=== PATIENT | female | born 1970 | race Two or more races ===

== ENCOUNTER 2020-07-06 11:02 | Outpatient (REF) | payer MEDICAID, SELFPAY ==
--- NOTE | ~2020-07-06 | MM_ITS ---
EXAMINATION: MM DIAGNOSTIC DIGITAL BREAST TOMOSYNTHESIS, RIGHT CLINICAL INFORMATION: Right breast density likely representing a complex cyst on previous ultrasound examination of 01/06/2020. The lifetime risk of breast cancer based on the Tyrer-Cuzick Model is 7.3%. COMPARISON: Mammography: 12/26/2019 TECHNIQUE: Digital breast tomosynthesis is performed in both the craniocaudal and mediolateral oblique views along with computer-aided detection (CAD). Synthesized 2D images are generated from the tomosynthesis. FINDINGS: There are scattered areas of fibroglandular density (ACR BI-RADS breast composition Category b). Within the superior anterior aspect of the right breast there is again noted to be a lobulated approximately 1 x 0.7 x 0.7 cm lesion. No other suspicious dominant masses or suspicious grouping of microcalcifications identified. Patient was unable to stay for ultrasound to ensure stability of partially cystic lesion seen on prior ultrasound. Patient has scheduled to come back for that study. MM/MM tomosynthesis diagnostic RT IMPRESSION: No significant mammographic change of anterior superior right breast lesion. Patient will return for ultrasound to ensure stability. ASSESSMENT: BI-RADS 0: Incomplete - Need Additional Imaging Evaluation RECOMMENDATION: Right breast ultrasound.
== END 2020-07-06 11:03 | disposition home or self-care (01) ==
LOC: HO.MAMMO 11:02
PROVIDERS: PCP Internal Medicine; Visit Provider Internal Medicine
DX: N63.10 Unspecified lump in the right breast, unspecified quadrant (principal)
CPT/HCPCS: 77061; 77065

== ENCOUNTER 2020-08-06 12:27 | Outpatient (REF) | payer MEDICAID, SELFPAY ==
--- NOTE | ~2020-08-06 | US_ITS ---
EXAMINATION: US DIAGNOSTIC ULTRASOUND BREAST, RIGHT CLINICAL INFORMATION: Periareolar nodule under 1 cm at initial baseline mammography, possibly related to a simple cyst on targeted ultrasound. No significant change on recent follow-up mammography. Patient was unable to stay for follow-up ultrasound which is performed today. COMPARISON: 07/06/2020, 12/26/2019 (BI-RADS 0), targeted right breast ultrasound 01/06/2020. TECHNIQUE: Ultrasound right breast is targeted to the 6:00 to 12:00 position. Grayscale imaging and color Doppler are performed without and with harmonics. FINDINGS: The small cyst previously noted 11:00 position is decreased in size. The nodule on mammography appears stable. The ultrasound finding and mammographic finding may therefore be different entities. There is no solid mass or architectural abnormality or focal duct ectasia. Management plan is for diagnostic follow-up right mammography at time of annual exam, due in 6 months. Results are discussed with the patient at time of visit. US/US breast RT limited IMPRESSION: Small cyst 11:00 position is decreased in size. Nodule on recent follow-up mammography appears stable. The ultrasound finding and mammographic finding may be different entities. ASSESSMENT: BI-RADS 3: Probably Benign RECOMMENDATION: Diagnostic mammography at time of annual bilateral exam, due in 6 months. This patient's information was entered into a reminder system with a target due date for their next mammogram.
== END 2020-08-06 12:28 | disposition home or self-care (01) ==
LOC: HO.MAMMO 12:27
PROVIDERS: PCP Internal Medicine; Visit Provider Internal Medicine
DX: N60.01 Solitary cyst of right breast (principal)
CPT/HCPCS: 76642

== ENCOUNTER 2022-11-21 09:54 | Outpatient (REF) | payer MEDICAID, SELFPAY ==
[2022-11-21 14:25] LABS: MANUAL DIFF FLAG NO
[2022-11-21 14:31] LABS: Basophils Percent Auto 0.5 % (0-2); Eosinophils Absolute Auto 0.4 X10*3/uL (0.0-0.4); Eosinophils Percent Auto 5.6 % (0-4); Hemoglobin 14.6 g/dl (12.0-16.0); Imm Gran Abs Auto 0.08 X10*3/uL (0.00-0.03); Lymphocytes Absolute Auto 2.4 X10*3/uL (1.2-4.9); Lymphocytes Percent Auto 30.9 % (20-40); Mean Corpuscular HGB Conc 35.6 g/dl (31.0-35.0); Mean Corpuscular Hemoglobin 27.8 pg (27.0-33.0); Mean Corpuscular Volume 77.9 fL (80.0-98.0); Mean Platelet Volume 10.9 fL (9.4-12.3); Monocytes Absolute Auto 0.5 X10*3/uL (0.1-1.2); Monocytes Percent Auto 6.1 % (2-11); Neutrophils Absolute Auto 4.3 x10*3/uL (2.0-8.3); Neutrophils Percent Auto 55.9 % (45-73); Platelet Count 335 X10*3/uL (160-400); Red Blood Count 5.26 X10*6/uL (4.20-5.50); White Blood Count 7.7 X10*3/uL (4.8-10.8)
[2022-11-21 15:17] LABS: Creatinine Urine 175.03 mg/dL; Microalbum/Creatinine Ratio Ur 14.8 ug/mg cr
[2022-11-21 15:29] LABS: Alanine Aminotransferase 28 U/L (0-31); Albumin Level 4.1 g/dL (3.5-5.0); Alkaline Phosphatase 115 U/L (39-117); Anion Gap 13 (12-20); Aspartate Amino Transferase 19 U/L (5-31); Bilirubin Total 0.3 mg/dL (0.0-1.0); Blood Urea Nitrogen 21 mg/dL (9-16); Calcium 9.8 mg/dL (8.4-10.2); Carbon Dioxide 27 mmol/L (22-29); Chloride 101 mmol/L (96-108); Cholesterol 232 mg/dL; Estimated Glomerular Filt Rate > 60; Glucose Random 310 mg/dL (60-115); HDL Cholesterol 54 mg/dL; LDL Cholesterol Calculated 143 mg/dl; Sodium 137 mmol/L (135-145); Total Protein 7.3 g/dL (6.5-8.0); Triglycerides 179 mg/dL
[2022-11-22 04:00] LABS: ~HepC Num1 0.08 S/CO (0.00-0.79); ~Hepatitis C Antibody Nonreactive (Nonreactive)
== END 2022-11-21 09:55 | disposition home or self-care (01) ==
LOC: HO.CHCLDS 09:54
PROVIDERS: Visit Provider Internal Medicine
DX: I10 Essential (primary) hypertension (principal); E11.42 Type 2 diabetes mellitus with diabetic polyneuropathy; E78.2 Mixed hyperlipidemia; Z79.4 Long term (current) use of insulin
CPT/HCPCS: 36415; 80053; 80061; 82043; 85025; 86803

== ENCOUNTER 2023-05-25 14:24 | Outpatient (REF) | payer MEDICAID, SELFPAY ==
[2023-05-25 18:13] LABS: Alanine Aminotransferase 23 U/L (0-31); Albumin Level 3.7 g/dL (3.5-5.0); Alkaline Phosphatase 76 U/L (39-117); Anion Gap 13 (12-20); Aspartate Amino Transferase 13 U/L (5-31); Bilirubin Total 0.3 mg/dL (0.0-1.0); Blood Urea Nitrogen 15 mg/dL (9-16); Calcium 8.8 mg/dL (8.4-10.2); Carbon Dioxide 23 mmol/L (22-29); Chloride 104 mmol/L (96-108); Cholesterol 190 mg/dL (<200); Estimated Glomerular Filt Rate > 60; Glucose Random 289 mg/dL (60-115); HDL Cholesterol 54 mg/dL (>40); LDL Cholesterol Calculated 110 mg/dL (<100); Potassium 3.6 mmol/L (3.3-5.1); Sodium 136 mmol/L (135-145); Total Protein 6.9 g/dL (6.5-8.0); Triglycerides 132 mg/dL (<150)
[2023-05-26 05:15] LABS: Estimated Average Glucose 214 mg/dL; Hemoglobin A1c % 9.1 % (<6.0)
== END 2023-05-25 14:25 | disposition home or self-care (01) ==
LOC: HO.CHCLDS 14:24
PROVIDERS: Visit Provider Internal Medicine
DX: E11.59 Type 2 diabetes mellitus with other circulatory complications (principal); Z79.4 Long term (current) use of insulin
CPT/HCPCS: 36415; 80053; 80061; 83036

== ENCOUNTER 2023-12-23 14:44 | Outpatient (REF) | payer MEDICAID, SELFPAY ==
[2023-12-23 17:38] LABS: MANUAL DIFF FLAG NO
[2023-12-23 17:43] LABS: Basophils Percent Auto 0.5 % (0-2); Eosinophils Absolute Auto 0.3 X10*3/uL (0.0-0.4); Eosinophils Percent Auto 4.5 % (0-4); Hemoglobin 14.7 g/dl (12.0-16.0); Imm Gran Abs Auto 0.06 X10*3/uL (0.00-0.03); Imm Gran Pct Auto 0.8 % (0.0-0.4); Lymphocytes Absolute Auto 2.5 X10*3/uL (1.2-4.9); Lymphocytes Percent Auto 33.7 % (20-40); Mean Corpuscular HGB Conc 36.8 g/dl (31.0-35.0); Mean Corpuscular Hemoglobin 28.4 pg (27.0-33.0); Mean Corpuscular Volume 77.2 fL (80.0-98.0); Mean Platelet Volume 10.4 fL (9.4-12.3); Monocytes Absolute Auto 0.5 X10*3/uL (0.1-1.2); Monocytes Percent Auto 7.1 % (2-11); Neutrophils Absolute Auto 3.9 x10*3/uL (2.0-8.3); Neutrophils Percent Auto 53.4 % (45-73); Platelet Count 378 X10*3/uL (160-400); Red Blood Count 5.18 X10*6/uL (4.20-5.50); Red Cell Distribution Width 13.2 % (11.0-16.0); White Blood Count 7.3 X10*3/uL (4.8-10.8)
[2023-12-23 17:58] LABS: Alanine Aminotransferase 13 U/L (0-31); Albumin Level 3.9 g/dL (3.5-5.0); Alkaline Phosphatase 82 U/L (39-117); Anion Gap 10 (12-20); Aspartate Amino Transferase 10 U/L (5-31); Bilirubin Total 0.7 mg/dL (0.0-1.0); Blood Urea Nitrogen 20 mg/dL (9-16); Calcium 9.4 mg/dL (8.4-10.2); Carbon Dioxide 29 mmol/L (22-29); Chloride 102 mmol/L (96-108); Cholesterol 290 mg/dL (<200); Estimated Glomerular Filt Rate > 60; Glucose Random 197 mg/dL (60-115); HDL Cholesterol 47 mg/dL (>40); LDL Cholesterol Calculated 212 mg/dL (<100); Potassium 3.7 mmol/L (3.3-5.1); Sodium 137 mmol/L (135-145); Total Protein 6.7 g/dL (6.5-8.0); Triglycerides 158 mg/dL (<150)
[2023-12-23 18:09] LABS: Creatinine Urine 191.79 mg/dL
== END 2023-12-23 14:45 | disposition home or self-care (01) ==
LOC: HO.CHCLDS 14:44
PROVIDERS: Visit Provider Internal Medicine
DX: E11.59 Type 2 diabetes mellitus with other circulatory complications (principal); Z79.4 Long term (current) use of insulin
CPT/HCPCS: 36415; 80053; 80061; 82043; 82570; 85025

== ENCOUNTER 2024-01-18 18:14 | Outpatient (REF) | payer MEDICAID, SELFPAY ==
[2024-01-18 18:23] LABS: Appearance Urine Clear; Color Urine Yellow; Glucose Urine UA 500 mg/dL (Negative); Leukocyte Esterase Urine Small (1+) (Negative); Nitrite Urine Negative (Negative); Specific Gravity - Urine 1.025 (1.005-1.025); UMIC TRIGGER UACC YES; Urine Blood Moderate (2+) (Negative); Urine Ketones Negative (Negative); Urine Protein 30 (1+) mg/dL (Neg-Trace)
[2024-01-18 23:54] LABS: Bacteria Urine Trace (None Seen); Hyaline Casts Urine 0-2 /LPF (0-2); UACC Culture Trigger YES
== END 2024-01-18 18:15 | disposition home or self-care (01) ==
LOC: HO.HHCLNP 18:14
PROVIDERS: Visit Provider Internal Medicine
DX: R39.9 Unspecified symptoms and signs involving the genitourinary system (principal)
CPT/HCPCS: 81001; 87086

== ENCOUNTER 2024-03-09 | Outpatient (REF) | payer MEDICAID, SELFPAY ==
[2024-03-14 10:49] LABS: HPV 16,18/45 See PAP report
== END 2024-03-09 00:01 | disposition home or self-care (01) ==
LOC: HO.LNP
PROVIDERS: Visit Provider Advanced Practice Midwife
DX: Z12.4 Encounter for screening for malignant neoplasm of cervix (principal)
CPT/HCPCS: 87624; 88175

== ENCOUNTER 2024-08-05 12:52 | Outpatient (REF) | payer MEDICAID, SELFPAY ==
--- OUTSIDE RECORDS SUMMARY | 2024-08-05 13:32 | XMS_ITS | Encounter Summary ---
Author Organization [employer] Address [address] [place] [address] [address] [place] [address] Care Team Providers Care Chief Medical Officer Name Role Phone Melecio Curran MD Primary Care Prov ider Reason for Visit * Reason Comments Med Change Request Encounter Details Date Type Department Care Team ([facility] st Contact Info) Description 04/21/2022 Refill [facility] [address] [place] [address] Melecio Curran MD [address] [place] [address] Type 2 diabetes mellitus with diabetic polyneuropathy, with long-term current use of insulin (CMS/HCC) Social History Tobacco Use Types Packs/Day Years Used Date Smoking Tobacco: Never Assessed Comments Unknown Sex and Gender Information Value Date Recorded Sex Assigned at Female 02/10/2022 10:36 AM EDT Legal Sex Female 10:36 AM EDT Gender Identity Female 02/10/2022 10:36 AM EDT Sexual Orientation Straight 02/10/2022 10 :36 AM EDT documented as of this encounter Plan of Treatment Not on file documented as of this encounter Visit Diagnoses Diagnosis Type 2 diabetes mellitus with diabetic polyneuropathy, with long-term current use of insulin (CMS/HCC) documented in this encounter Care Teams Chief Medical Officer Relationship Specialty Start Date End Date Melecio Curran MD [address] [place] [address] PCP - General Internal Medicine 07/11/19 documented as of this encounter
--- OUTSIDE RECORDS SUMMARY | 2024-08-05 13:32 | XMS_ITS | Encounter Summary ---
Author Organization [employer] Address [address] [facility] 7t [place] [address] Care Team Providers Care Tallow Maker Name Role Phone Melecio Curran MD Primary Care Prov ider Reason for Visit * Reason Onset Date Comments Referral 10/20/2023 Encounter Details Date Type Department Care Team (Late st Contact Info) Description 10/20/2023 Telephone [facility] [address] [place] [address] Melecio Curran MD [address] [place] [address] Referral Social History Tobacco Use Types Packs/Day Years Used Date Smoking Tobacco: Never Smokeless Tobacco: Never Alcohol Use Standard Drinks/Week Comments Never 0 (1 standard drink = 0.6 oz pur e alcohol) Depression Answer Date Recorded Patient Health Questionnaire-9 Score 2 11/21/2022 Housing Stability Answer Date Recorded What is your housing situation today? I have smita sing 02/11/[address] you li ve. Do you have problems with any of the following? None of the above 02/11/2023 Food Insecurity Answer Date Recorded Within the past 12 months, y ou worried that your food would run out before you got money to buy more: Never True 02/11/2023 Within the past 12 months,th e food you bought just didn't last and you didn't have enough money to get more: Never True 04/2022 Transportation Answer Date Recorded In the past 12 months, has l ack of transportation kept you from medical appts, meetings, work or from getting things needed for daily living? No 02/11/2023 Utilities Answer Date Recorded In the past 12 months, has t he electric, gas, oil or water company threatened to shut off services in your home? No 02/11/2023 Depression Answer Date Recorded Patient Health Questionnaire-2 Score 2 11/21/2022 Comments Unknown Sex and Gender Information Value Date Recorded Sex Assigned at Female 02/10/2022 10:36 AM EDT Legal Sex Female 10:36 AM EDT Gender Identity Female 02/10/2022 10:36 AM EDT Sexual Orientation Straight 02/10/2022 10 :36 AM EDT documented as of this encounter Miscellaneous Notes * Telephone Encounter - Petty Jones RN - 10/20/2023 6:24 PM EDT Tc from pt requesting new referral for orthopedics due to a concern with her leg. Pt stated her leghas been giving out more often and pcp is aware of situation but she be seen with a specialist regarding the issue. If any questions you can contact pt at [phone]. TC placed to pt to discuss her request for PT referral advised pt that she would most likely need to be evaluated prior to PT referral. Pt states she is out of work PFMLA r/t an injury that happened at work and has had PT for this leg however it is in [place] and difficult to get to. She stopped PT2 months ago and feels as if her leg is not getting better and would like PT in [place] area will send message to PCP to advise if apt is needed as on going problem an/or tele would be appropriate * Telephone Encounter - Aaron Moser - 10/20/2023 9:23 AM EDT Tc from pt requesting new referral for orthopedics due to a concern with her leg. Pt stated her leghas been giving out more often and pcp is aware of situation but she be seen with a specialist regarding the issue. If any questions you can contact pt at [phone]. documented in this encounter Plan of Treatment Not on file documented as of this encounter Visit Diagnoses Not on filedocumented in this encounter Additional Health Concerns Assessment Noted Time PHQ-9 Depression Total Score: 2 11/22/19 23 8:58 AM EDT documented as of this encounter Care Teams Tallow Maker Relationship Specialty Start Date End Date Melecio Curran MD [address] [place] [id number] PCP - General Internal Medicine 07/11/19 documented as of this encounter
--- OUTSIDE RECORDS SUMMARY | 2024-08-05 13:32 | XMS_ITS | Encounter Summary ---
Author Organization [employer] Address [address] [place] [address] 7 [place] [address] Care Team Providers Care Deep Well Contractor Name Role Phone Melecio Curran MD Primary Care Prov ider Reason for Visit * Reason Comments Med Refill Encounter Details Date Type Department Care Team ([facility] st Contact Info) Description 08/05/2024 Refill [facility]EDS [address] [place], [place] [phone] Melecio Curran MD [address] [place] [address] Type 2 diabetes mellitus with diabetic polyneuropathy, with long-term current use of insulin ([facility]) Social History Tobacco Use Types Packs/Day Years Used Date Smoking Tobacco: Never Smokeless Tobacco: Never Alcohol Use Standard Drinks/Week Comments Never 0 (1 standard drink = 0.6 oz pur e alcohol) Depression Answer Date Recorded Patient Health Questionnaire-9 Score 2 11/21/2022 Housing Stability Answer Date Recorded What is your housing situation today? I have smita tg 02/11/[address] you li [...] Patient Health Questionnaire-2 Score 2 11/21/2022 Comments No Sex and Gender Information Value Date Recorded [...] polyneuropathy, with long-term current use of insulin ([facility]) documented in this encounter Additional Health Concerns Assessment Noted Time PHQ-9 Depression Total Score: 2 11/22/19 23 8:58 AM EDT documented as of this encounter Care Teams Deep Well Contractor Relationship Specialty Start Date End Date Melecio Curran MD [address] [place] [id number] PCP - General Internal Medicine 07/11/19 documented as of this encounter
--- OUTSIDE RECORDS SUMMARY | 2024-08-05 13:32 | XMS_ITS | Encounter Summary ---
Author Organization [employer] Address [address] [place] [address] 7 [place] [address] Care Team Providers Care On Site Construction Superintendent Name Role Phone Melecio Curran MD Primary Care Prov ider Reason for Visit * Reason Onset Date Comments Appointment Request 01/26/2024 Encounter Details Date Type [facility] Description 01/26/2024 Telephone [facility] [address] [place] [address] Melecio Curran MD [address] [place] [address] Appointment Request Social History Tobacco Use Types Packs/Day Years Used Date Smoking Tobacco: Never Smokeless Tobacco: Never Alcohol Use Standard Drinks/Week Comments Never 0 (1 standard drink = 0.6 oz pur e alcohol) Depression Answer Date Recorded Patient Health Questionnaire-9 Score 2 11/21/2022 Housing Stability Answer Date Recorded What is your housing situation today? I have smita mas 02/11/[address] you li [...] encounter Miscellaneous Notes * Telephone Encounter - Piper Soler - 01/26/2024 11:36 AM EDT Tc from pt requesting to cancel and r/s PAP appointment with Federico. Preferably Thursday or Thursday. Contact pt at [phone] documented in this encounter Plan of Treatment Not on file documented as of this encounter Visit Diagnoses Not on filedocumented in this encounter Additional Health Concerns Assessment Noted Time PHQ-9 Depression Total Score: 2 11/22/19 23 8:58 AM EDT documented as of this encounter Care Teams On Site Construction Superintendent Relationship Specialty Start Date End Date Melecio Curran MD [address] [place] [phone] PCP - General Internal Medicine 07/11/19 documented as of this encounter
--- OUTSIDE RECORDS SUMMARY | 2024-08-05 13:32 | XMS_ITS | Encounter Summary ---
Author Organization [employer] Address [address] [facility] 7t [place] [address] Care Team Providers Care Camp Cook Name Role Phone Melecio Curran MD Primary Care Prov ider Encounter Details Date Type Department Care Team (Late st Contact Info) Description 12/25/2023 Orders Only [facility] [address] [place] [address] ProviderHaseeb MD Social History Tobacco Use Types Packs/Day Years Used Date Smoking Tobacco: Never Smokeless Tobacco: Never Alcohol Use Standard Drinks/Week Comments Never 0 (1 standard drink = 0.6 oz pur e alcohol) Depression Answer Date Recorded Patient Health Questionnaire-9 Score 2 11/21/2022 Housing Stability Answer Date Recorded What is your housing situation today? I have smitaterri mas 02/11/[address] you [...] t he electric, gas, oil or water [employer] threatened to shut off services in your [...] documented as of this encounter Care Teams Camp Cook Relationship Specialty Start Date End Date Melecio Curran MD [address] [place] [phone] PCP - General Internal Medicine 07/11/19 documented as of this encounter
--- OUTSIDE RECORDS SUMMARY | 2024-08-05 13:32 | XMS_ITS | Encounter Summary ---
Author Organization [employer] Address [address] [place] [address] 7 [place] [address] Care Team Providers Care Aemt Name Role Phone Melecio Curran MD Primary Care Prov ider Reason for Visit * Reason Onset Date Comments Med Refill 03/04/2023 Encounter Details Date Type Department Care Team ([facility] Contact Info) Description 03/04/2023 Telephone [facility] MED & PEDS [address] [place] [address] Melecio Curran MD [address] [place] [address] Med Refill Social History Tobacco Use Types Packs/Day Years Used Date Smoking Tobacco: Never Assessed Depression Answer Date Recorded Patient Health Questionnaire-9 [...] encounter Miscellaneous Notes * Telephone Encounter - Aaron Moser - 03/04/2023 4:10 PM EST Tc from pt requesting med refill for dulaglutide (Trulicity) 1.5 MG/0.5ML solution pen-injector. documented in this encounter Plan of Treatment Not on file documented as of this encounter Visit Diagnoses Not on filedocumented in this encounter Additional Health Concerns Assessment Noted Time PHQ-9 Depression Total Score: 2 11/22/19 23 8:58 AM EDT documented as of this encounter Care Teams Aemt Relationship Specialty Start Date End Date Melecio Curran MD [address] [place] [phone] PCP - General Internal Medicine 07/11/19 documented as of this encounter
--- OUTSIDE RECORDS SUMMARY | 2024-08-05 13:32 | XMS_ITS | Clinical Summary ---
Author Organization [employer] Address [address] [place] [address] 7 [place] [address] Care Team Providers Care Time Motion Analyst Name Role Phone Melecio Curran MD Primary Care Prov ider Allergies Active Allergy Reactions Criticality Noted Date Comments Acetaminophen 11/17/2019 Other reaction(s): Aspirin not indicated, Aspirin not indicated Aspirin 11/17/2019 Medications Blood Pressure kit 1 kit in the morning. 1 kit 4 Active lisinopril-hydroCHL OROthiazide 10-12.5 MG tabletIndications:P rimary hypertension TAKE 1 TABLET BY MOUTH EVERY DAY IN THE MORNING 90 tablet 3 4 Active atorvastatin (Lipitor) 40 MG tabletIndications:M ixed hyperlipidemia TAKE 1 TABLET BY MOUTH EVERY DAY IN THE MORNING 90 tablet 3 4 Active dulaglutide (Trulicity) 4.5 MG/0.5ML solution pen-injector Inject 4.5 mg under the skin 1 (one) time per week. 4 each 4 Active albuterol 108 (90 Base) MCG/ACT inhaler Inhale 2 puffs every 6 (six) hours if needed for wheezing. 18 g 4 12/22/19 25 Active levETIRAcetam XR (Keppra XR) 500 MG 24 hr tablet Take 2,000 mg by mouth Once per day. Active Alcohol Swabs (B-D SINGLE USE SWABS REGULAR) pads USE 3 TIMES A DAY 100 each 4 Active cetirizine (ZyrTEC) 10 MG tabletIndications:S easonal allergies TAKE 1 TABLET BY MOUTH EVERY DAY IN THE MORNING 90 tablet 3 5 Active glipiZIDE XL (Glucotrol XL) 5 MG 24 hr tabletIndications:T ype 2 diabetes mellitus with diabetic polyneuropathy, with long-term current use of insulin (CMS/HCC) TAKE 1 TABLET (5 MG) BY MOUTH IN THE MORNING . DO NOT CRUSH, CHEW, OR SPLIT 90 tablet 5 Active insulin aspart FlexPen (NovoLOG) 100 UNIT/ML pen Inject 5 Units under the skin with breakfast, with lunch, and with evening meal. 13.5 mL 3 5 06/30/19 26 Active insulin glargine (Lantus SoloStar) 100 UNIT/ML pen Inject 35 Units under the skin at bedtime. 15 mL 3 5 Active Active Problems Problem Noted Date Diagnosed Date UTI symptoms 01/18/2024 Assessment & Plan (01/18/2024 2:59 PM EDT): Do not hold urine Drink plenty of water UA and culture Will treat empirically with macrobid Screening for colon cancer 12/22/2023 Assessment & Plan (12/22/2023 7:32 PM EDT): Done on [facility] 2 years ago, no record on chart will task MA Chronic pain of both knees 12/22/2023 Assessment & Plan (12/22/2023 7:33 PM EDT): Will place referral to ortho for evaluation Primary hypertension 11/25/2022 Assessment & Plan (06/29/2024 1:48 PM EDT): Controlled, conitnue low sodium diet and exercise as tolerated, keep bp log, follow up in 3 months Assessment & Plan (01/18/2024 3:00 PM EDT): Today slightly high, I advise low Na diet take medications as prescribed and f/u with PCP Assessment & Plan (12/22/2023 7:28 PM EDT): Controlled, no changes will be made, continue lwo sodium diet and exercise as tolerated Assessment & Plan (05/12/2023 3:14 PM EST): Patient not monitorin her blood pressure, will send a new bp monitor, reinforced importance of daily monitoring, low sodium diet and exercise as tolerated, continue on current medications Assessment & Plan (11/25/2022 10:10 AM EDT): Today was above target, she has wcs, her reading at home remains <130/80, told to keep a bp log, reinforced importance of low sodium diet will follow up in 1 monht Type 2 diabetes mellitus wit h circulatory disorder, with long-term current use of insulin 11/25/2022 Assessment & Plan (06/29/2024 1:49 PM EDT): Uncontrolled, she refused diabetic daniel follow up, will add short acting insulin and increase lantus to 35 units, trulicity is on maximum dose, follow up in 1 month Assessment & Plan (12/22/2023 7:30 PM EDT): Not at target, will increase trulicity to 4.5mg, and insulin to 25 units, discussed importance of diet adherance, will follow up in 4 months Pending eye exam Foot exam done today was unremarkable Assessment & Plan (05/12/2023 3:16 PM EST): She refer using lantus as prescribed daily, trulicity and glipizide, continue low carb/no sugar diet, follow up in 3 [facility] new labs ordered Will place optometry referal Assessment & Plan (11/25/2022 10:12 AM EDT): Not at target, 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, she is on trulicity 1.5, glipizide, metformin and lantus 20 units, will follow up in 1 monht Mixed hyperlipidemia 11/25/2022 Assessment & Plan (12/22/2023 7:33 PM EDT): On atorvastatin, will order new labs for guidance of therapy Assessment & Plan (11/25/2022 10:13 AM EDT): New labs will be ordered for guidance of therapy Encounter for screening mamm ogram for malignant neoplasm of breast 11/25/2022 Assessment & Plan (12/22/2023 7:31 PM EDT): Will place order for screening breast cancer Assessment & Plan (05/12/2023 3:17 PM EST): Refused mammogram, risk vs benefits discussed Assessment & Plan (11/25/2022 10:13 AM EDT): Will order a screenign mammogram Encounters Date Type Department Care Team Description 08/05/2024 Refill [facility] [address] [place] [address] Melecio Curran MD Type 2 diabetes mellitus with diabetic polyneuropathy, with long-term current use of insulin (CMS/HCC) 07/26/2024 Telephone [facility] [address] [place] [address] Melecio Curran MD 06/29/2024 10:30 AM EDT Office Visit [facility] [address] [place] [address] Melecio Curran MD Primary hypertension (Primary Dx); Type 2 diabetes mellitus with other circulatory complication, with long-term current use of insulin (CMS/HCC) 06/29/2024 Travel 06/24/2024 Population Health Risk Score [facility] Department [address] [facility] [address] [place] [address] Provider, Population Health Generic 06/13/2024 Telephone [facility] [address] [place] [address] Melecio Curran MD 05/27/2024 Orders Only [facility] [address] [place] [address] Melecio Curran MD Type 2 diabetes mellitus with other circulatory complication, with long-term current use of insulin ([facility]) (Primary Dx) 05/13/2024 Telephone [facility] [address] [place] [address] Elizabeth Raman, PharmD 05/09/2024 Refill [facility] [address] [place] [address] Melecio Curran MD Type 2 diabetes mellitus with diabetic polyneuropathy, with long-term current use of insulin (CMS/HCC) 05/07/2024 Refill [facility] [address] [place] [address] Melecio Currna MD Seasonal allergies from Last 3 Months Immunizations Name Administration Dates Next Due Pneumococcal Conjugate PCV 20 11/21/2022 Social History Tobacco Use Types Packs/Day Years Used Date Smoking Tobacco: Never Smokeless Tobacco: Never Tobacco Cessation:Counseling Given: Not Answered Alcohol Use Standard Drinks/Week Comments Never 0 [...] Orientation Straight 02/10/2022 10 :36 AM EDT Last Filed Vital Signs Vital Sign Reading Time Taken Comments Blood Pressure 123/79 06/29/2024 10:40 AM EDT Pulse 100 06/29/2024 10:40 AM EDT Temperature 36 ??C (96.8 ??F) 06/29/2024 10:40 AM EDT Respiratory Rate 20 06/29/2024 10:40 AM EDT Oxygen Saturation 98% 03/09/2024 10:39 AM EST Inhaled Oxygen Concentration - - Weight 75.5 kg (166 lb 6.4 oz) 06/29/2024 10:40 AM EDT Height 152.4 cm (5') 06/29/2024 10:40 AM EDT Body Mass Index 32.5 06/29/2024 10:40 AM EDT Plan of Treatment Health Maintenance Due Date Last Done Comments CT Colonography 1968 FIT DNA/Cologuard 1968 FIT 1968 FOBT 1970 Sigmoidoscopy 1968 Diabetes: Foot Exam 01/20/1978 Eye Exam 01/20/1978 Alcohol/Substance Use Screening 1980 Hepatitis B Vaccines (1 of 3 - 19+ 3-dose series) 01/20/1987 Zoster Vaccines (2 of 2) 10/08/2021 08/13/2021 Mammogram 07/06/2022 07/06/2020, 12/12, 12/27/2019 Depression Screening 11/22/2023 11/21/2022, 11/22/19 23 SDOH Screening 11/22/2023 11/21/2022 COVID-19 Vaccine ( season) 2023 09/13/2020, 08/16/2020 Influenza Vaccine (#1) 2023 03/13/2021, 2019 Diabetes: Hemoglobin A1C 09/29/2024 025, 12/22/2023, 05/25/2023, Additional history exists Diabetes: Urine Protein Screening 12/22/2024 12/23/2023, 11/21/2022, 06/27/2021, Additional history exists Lipid Panel 12/22/2024 12/23/2023, 05/14, 11/21/2022, Additional history exists Tobacco Screening 03/09/2025 03/09/2024 Cervical Cancer Screening 03/09/2029 HPV/Cotest 03/09/2029 Pap Smear 03/09/2029 03/09/2024, 03/14/2020 Colonoscopy 12/29/2029 12/30/2019 Colorectal Cancer Screening 12/29/2029 DTaP/Tdap/Td Vaccines (2 - Td or Tdap) 08/14/2031 08/13/2021 RSV Patients and Patients Aged 60 years or older (1 - 1-dose 75+ series) 01/20/2043 HIV Screening Completed 06/27/2021, 10/10/2020 Hepatitis C Screening Completed 11/21/2022, 022 Pneumococcal Vaccine: 50+ Years Completed 11/21/2022 HIB Vaccines Aged Out No longer eligi ble based on patient's age to complete this topic HPV Vaccines Aged Out No longer eligi ble based on patient's age to complete this topic Hepatitis A Vaccines Aged Out No long er eligible based on patient's age to complete this topic IPV Vaccines Aged Out No longer eligi ble based on patient's age to complete this topic Meningococcal Vaccine Aged Out No apple michael eligible based on patient's age to complete this topic RSV under 20 months Aged Out No longe r eligible based on patient's age to complete this topic Rotavirus Vaccines Aged Out No longer eligible based on patient's age to complete this topic Procedures Procedure Name Priority Date/Time Associated Diagnosis Comments POCT GLYCATED HEMOGLOBIN, TOTAL Routine 06/29/2024 10:43 AM EDT Type 2 diabetes mellitus with other circulatory complication, with long-term current use of insulin ([facility]) POCT GLUCOSE Routine 06/29/2024 10:42 AM EDT Type 2 diabetes mellitus with other circulatory complication, with long-term current use of insulin ([facility]) PAP SMEAR Routine 03/09/2024 10:50 AM EST Cervical cancer screening ALBUMIN, RANDOM URINE W/CREATININE Routine 12/23/2023 2:50 PM EDT Type 2 diabetes mellitus with other circulatory complication, with long-term current use of insulin (CMS/HCC) LIPID PANEL, STANDARD Routine 12/23/2023 2:48 PM EDT Type 2 diabetes mellitus with other circulatory complication, with long-term current use of insulin (CMS/HCC) HEPATITIS C ANTIBODY REFLEX Routine 11/21/2022 9:58 AM EDT HIV 1/2 ANTIGEN/ANTIBODY, FOURTH GENERATION W/RFL Routine 06/27/2021 11:15 AM EDT MAMMOGRAM GENERIC Routine 07/06/2020 11: 00 AM EDT HM COLONOSCOPY Routine 12/30/2019 8:29 AM EDT from Last 3 Months or Most Recently Relevant to Health Maintenance Results * (ABNORMAL) POCT HGB A1C (06/29/2024 10:43 AM EDT) Hemoglobin A1C 12.7(A) 4.0 - 6.0 % QC Media Lot # [id number] Lot# Expiration Date Blood 06/29/2024 10:4 3 AM EDT us Melecio Dawson MD POINT OF CARE TEST ENTER/EDIT ORDERABLES Final Result * (ABNORMAL) POCT Glucose (06/29/2024 10:42 AM EDT) Glucose Blood, POC 380(A) 60 - 200 mg/dL QC Media Lot # [id number] Lot# Expiration Date Blood Capillary blood specimen / Unknown 06/29/2024 10:42 AM EDT us Melecio Dawson MD POINT OF C ARE TEST ENTER/EDIT ORDERABLES Edited Result - Final * Pap Smear (03/09/2024 10:50 AM EST) Swab Cervix uteri structure / Unknown 03/09/2024 10:50 AM EST 03/14/2024 9:30 AM EST Narrative [facility] - 03/17/2024 10:16 AM EST ----- ------- Name: Innocent,Keisha ? Age/Sex: 54/F ? : 1970 Unit#: [id number] ?? Attend Dr: ?Re03/09/24 ?Status: PRE REF ? Location: HO.LNP ?Disch: ? ----- ------- SPEC : [id number] ?RECD: 03/14/24-929 ? STATUS: ??SOUT ? REQ NUM: [id number] ? GIANLUCA: 03/09/24-0 ? SUBM DR: IZABELLA COWAN CNM ? ENTERED: ??03/14/24-1020 ?SP TYPE: Pap Smr ?OTHR : ? ORDERED: ??Pap Smear ? Interpretation ?? Satisfactory for evaluation. ?? Negative for intraepithelial lesion or malignancy. ?? No endocervical cells seen. ? HPV High Risk: ??Negative ? HPV Genotyping 16: ??Negative ?? HPV Genotyping 18: ??Negative ?Clinical Information LMP: Postmenopausal Previous PAP test: 2020, Unknown findings ? Material Received ?? ThinPrep-Cervical ----- ------- Signed (signature on file) TAMY Ahmadi (ASCP) 03/17/24 1016 ? ----- ------- ? END OF REPORT ? us Izabella Cowan CNM LAB CYTOLOGY ORDERABLES F inal Result Performing Organization Address [facility] de Phone Number [facility] [address] [place] [address] [phone] * Albumin, Random Urine W/Creatinine (12/23/2023 2:50 PM EDT) Creatinine, Urine 191.79 mg/dL [facility] Microalbumin Urine 27.0 mg/L [facility] Microalbum Creatinine Ratio Ur 14.0 <30 ug/mg cr [facility] Comment:Albumin/Creatinine R atio Reference Ranges: Normal: < 30 ug/mg creatinine Microalbuminuria: 30 - 300 ug/mg creatinineClinical Albuminuria: > 300 ug/mg creatinine Urine (Urine, Random) 12/23/2023 2:50 PM EDT 12/23/2023 5:39 PM EDT Melecio Dawson MD LAB URINE ORDERABL ES Final Result Performing Organization Address [facility] Phone Number [facility] [address] [place] [phone] * (ABNORMAL) Lipid Panel, Standard (12/23/2023 2:48 PM EDT) Triglycerides 158(H) <150 mg/dL [facility] Comment:Desirable Triglyceri de: less than 150 mg/dLBorderline High Triglyceride 150-199 mg/dLHigh Triglyceride: 200-499 mg/dLVery High Triglyceride: greater than or equal to 5OO mg/dL Cholesterol 290(H) <200 mg/dL [facility] Comment:Desirable Cholestero l: less than 200 mg/dLBorderline High Cholesterol: 200-239 mg/dLHigh Cholesterol: greater than 239 mg/dL LDL Cholesterol Calculated 212(H) <100 mg/dL [facility] Comment:Desirable LDL: less than 100 mg/dLNear Optimal/Above Optimal LDL: 110- 129 mg/dLBorderline High LDL: 130-159 mg/dLHigh LDL: 160-189 mg/dLVery High LDL: greater than or equal to 190 mg/dL HDL Cholesterol 47 >40 mg/dL [facility] Comment:Desirable HDL: great er than 40 mg/dL Note: This HDL assay may give artificially low results in patients with liver disease. Blood Venous blood specimen / Unknown 12/23/2023 2:48 PM EDT 12/23/2023 5:35 PM EDT Melecio Dawson MD LAB BLOOD ORDERABL ES Final Result Performing Organization Address [facility] Co de Phone Number [facility] [address] [place] [phone] * Hepatitis C Antibody Reflex (11/21/2022 9:58 AM EDT) Hepatitis C Antibody Nonreactive Nonreactive [facility] Comment:Antibodies to HCV no t detected; does not exclude early acuteHCV infection. 11/21/2022 9:58 AM EDT 11/21/2022 2:21 PM EDT Melecio Dawson MD LAB BLOOD ORDERABL ES Final Result Performing Organization Address [facility] Co de Phone Number [facility] [address] [place] [phone] * HIV 1/2 ANTIGEN/ANTIBODY,FOURTH GENERATION W/RFL (06/27/2021 11:15 AM EDT) HIV-1/2 ANTIGEN AND ANTIBODIES, 4TH GENERATION W/ REFLEX NON-REACT GILBERTO NON-REACT GILBERTO [facility] Comment: HIV-1 antigen and HIV-1/HIV-2 antibodies were not detected. There is no laboratory evidence of HIV infection. ?? PLEASE NOTE: This information has been disclosed to you from records whose confidentiality may be protected by state law. ??If your state requires such protection, then the state law prohibits you from making any further disclosure of the information without the specific written consent of the person to whom it pertains, or as otherwise permitted by law. A general authorization for the release of medical or other information is NOT sufficient for this purpose. ? For additional information please refer to http://education.[employer]/faq/XNP357 (This link is being provided for informational/ educational purposes only.) ? The performance of this assay has not been clinically validated in patients less than 2 years old. ?? 06/27/2021 11:1 5 AM EDT Melecio Dawson MD LAB BLOOD ORDERABL ES Final Result Performing Organization Address City/State/Banner Number [facility] [address] * Mammography Report 1 (07/06/2020 11:00 AM EDT) Anatomical Region Laterality Modality Breast Bilateral Mammography 07/06/2020 11:0 0 AM EDT Narrative 07/06/2020 3:18 PM EDT Refer to the Notes tab for result details [facility] Procedure: Mammography Report 1 Procedure Note Provider, MD Haseeb - 07/05/2022 Refer to the Notes tab for result details [facility] Procedure: Mammography Report 1 Melecio Dawson MD IMG BI PROCEDURES Final Result * Hm Colonoscopy (12/30/2019 8:29 AM EDT) Haseeb Provider HEALTH MAINTENANCE Final Result from Last 3 Months or Most Recently Relevant to Health Maintenance Insurance [employer] C3 Care Teams Time Motion Analyst Relationship Specialty Start Date End Date Melecio Curran MD [address] [place] [phone] PCP - General Internal Medicine 07/11/19
--- OUTSIDE RECORDS SUMMARY | 2024-08-05 13:32 | XMS_ITS | Encounter Summary ---
Author Organization [employer] Address [address] [facility] [address] [place] [address] Care Team Providers Care Alternative Medicine Practitioner Name Role Phone Melecio Curran MD Primary Care Prov ider Encounter Details Date Type Department Care Team (Late st Contact Info) Description 12/28/2023 Orders Only [facility] [address] [place] [address] ProviderHaseeb MD Social History Tobacco Use Types [...] t he electric, gas, oil or water [employer] threatened to shut off services in your [...] on file documented as of this encounter Procedures Procedure Name Priority Date/Time Associated Diagnosis Comments HM COLONOSCOPY Routine 12/30/2019 8:29 AM EDT documented in this encounter Results * Hm Colonoscopy (12/30/2019 8:29 AM EDT) us Historical Provider HEALTH MAINTENANCE Final Result documented in this encounter Visit Diagnoses Not on filedocumented in this encounter Additional Health Concerns Assessment Noted Time PHQ-9 Depression Total Score: 2 11/22/19 23 8:58 AM EDT documented as of this encounter Care Teams Alternative Medicine Practitioner Relationship Specialty Start Date End Date Melecio Curran MD [address] [place] [phone] PCP - General Internal Medicine 07/11/19 documented as of this encounter
--- OUTSIDE RECORDS SUMMARY | 2024-08-05 13:32 | XMS_ITS | Clinical Summary ---
Author Organization [facility] Address [address] [place] [phone] Care Team Providers Care American Studies Professor Name Role Phone Unavailable Primary Care Provider Unavailabl e Social History Tobacco Use Types Packs/Day Years Used Date Smoking Tobacco: Never Assessed Comments Unknown Sex and Gender Information Value Date Recorded Sex Assigned at Not on file Legal Sex Female 8:15 PM EST Gender Identity Not on file Sexual Orientation Not on file Plan of Treatment Health Maintenance Due Date Last Done Comments Breast Cancer Screening 1970 DTaP,Tdap,and Td Vaccines (1 - Tdap) 01/20/1987 Hepatitis B Vaccines (1 of 3 - 19+ 3-dose series) 01/20/1987 Cervical Cancer Screening: P ap Smear 01/20/1989 Pneumococcal Vaccine: 50+ Ye ars (1 of 1 - PCV) 01/20/2018 Zoster Vaccines (1 of 2) 01/20/2018 Colorectal Cancer Screening: Colonoscopy 03/15/2022 Depression Screening 03/15/2022 HIV Screening 03/15/2022 Hepatitis C Screening 03/15/2022 Social Influencers of Health Screening 03/15/2022 COVID-19 Vaccine ( - 2023-2 5 season) 2023 Influenza Vaccine (Season Ended) 2024 HIB Vaccines Aged Out No longer eligi [...] on patient's age to complete this topic MMR Vaccines Aged Out No longer eligi ble based on patient's age to complete this topic Meningococcal ACWY Vaccine Aged Out N o longer eligible based on patient's age to complete this topic Meningococcal B Vaccine Aged Out No l onger eligible based on patient's age to complete this topic Pneumococcal Vaccine: Pediat rics (0 to 5 Years) and At-Risk Patients (6 to 64 Years) Aged Out No longer eligible b ased on patient's age to complete this topic RSV Immunization Patients [place] 20 months Aged Out No longer eligible b ased on patient's age to complete this topic Varicella Vaccines Aged Out No longer eligible based on patient's age to complete this topic"
--- OUTSIDE RECORDS SUMMARY | 2024-08-05 13:32 | XMS_ITS ---
Author Organization [facility] Care Team Providers Care Checker Product Design Name Role Phone Araceli Ernandez Unavailable Unavailable Korin Zapata Unavailable Unavailable Clemencia Hess Unavailable Unavailable Christina Valencia Unavailable Unavailable Allergies and adverse reactions Code CodeSystem Substance Reaction Severity StartDate Concern Status Tylenol Unknown 10/03/2022 active 1191 RXNORM Aspirin Unknown 10/03/2022 active Care Team Name Role Address Phone Organization Dates Korin Zapata PCP [address] [facility] [address], [place], [address], [facility] (Office): [facility] 10/03/2022 - 10/13/2022 Araceli Ernandez Attending Physician [address] [place] [address], [phone], [facility] (Office): [facility] 10/03/2022 - 10/13/2022 Clemencia Hess Attending Physician [address] [place] [address] [place] [address], [phone], [facility] (Office): [facility] 10/03/2022 - 10/13/2022 Christina Valencia Attending Physician [address] [place], [address], [facility] (Office): [facility] 10/03/2022 - 10/13/2022 Immunizations Immunization Status Vaccine Details Vaccine Code CodeSystem Gunner e Notes SARS-COV-2 (COVID-19) completed SARS-COV-2 (COVID-19) vaccine, mRNA, spike protein, LNP, preservative free, 100 mcg/0.5mL dose or 50 mcg/0.25mL dose Step 2 of Multi-step with next step required 207 CVX created date: 10/08/2022 administered date: 09/13/2020 SARS-COV-2 (COVID-19) completed SARS-COV-2 (COVID-19) vaccine, mRNA, spike protein, LNP, preservative free, 100 mcg/0.5mL dose or 50 mcg/0.25mL dose Step 1 of Multi-step with next step required 207 CVX created date: 10/08/2022 administered date: 08/16/2020 Mental Status Section Date Assessment Total Score Description 10/13/2022 BIMS 15 cognitively int act CAM 0 No delirium ind icated PHQ-9 00 10/09/2022 BIMS 14 cognitively int act CAM 0 No delirium ind icated PHQ-9 00 Problems Problem # Description Date of onset Resolved Date Code CodeSystem Concern Status 1 ALLERGIC RHINITIS, UNSPECIFIED 10/03/[address] active 2 BENIGN NEOPLASM OF MENINGES, UNSPECIFIED 10/03/[address] active 3 ESSENTIAL (PRIMARY) HYPERTENSION 10/03/[address] active 4 HYPERLIPIDEMIA, UNSPECIFIED 10/03/[address] active 5 LEIOMYOMA OF UTERUS, UNSPECIFIED 10/03/[address] active 6 LOCALIZATION-RELATE D (FOCAL) (PARTIAL) SYMPTOMATIC EPILEPSY AND EPILEPTIC SYNDROMES WITH SIMPLE PARTIAL SEIZURES, NOT INTRACTABLE, WITHOUT STATUS EPILEPTICUS 10/03/[address] active 7 MORBID (SEVERE) OBESITY DUE TO EXCESS CALORIES 10/03/[address] active 8 MUSCLE WEAKNESS (GENERALIZED) 10/03/[address] active 9 OTHER ABNORMALITIES OF GAIT AND MOBILITY 10/03/[address] active 10 PERSONAL HISTORY OF (HEALED) TRAUMATIC FRACTURE 10/03/[address] active 11 PERSONAL HISTORY OF POLIOMYELITIS 10/03/[address] active 12 TYPE 2 DIABETES MELLITUS WITHOUT COMPLICATIONS 10/03/[address] active 13 UNSPECIFIED FRACTURE OF LEFT FEMUR, SUBSEQUENT ENCOUNTER FOR CLOSED FRACTURE WITH ROUTINE HEALING 10/03/[address] active Reason for Referral No Reasons for Referral Entered Social History Social History Observation Description Start Date End Date Code Code System Current Smoking Status Tobacco smoking consumption unknown 571384656 SNOMED CT Sex Assigned At Female 1970 88247-3 [facility] Vital Signs Code Code System Vitals Name Values and Units Timing Information 34144-2 [facility] Pain Level Value=0.0 10/13/2022 2339-0 [facility] Blood Sugar Vniim=134.0 Units=mg/dL 10/13/2022 8462-4 [facility] Blood Pressure-Diastolic Value=74 Un its=mmHg 10/13/2022 8480-6 [facility] Blood Pressure-Systolic Vehue=506 Un its=mmHg 10/13/2022 8310-5 [facility] Body Temperature Value=97.8 Units=?? F 10/13/2022 8867-4 [facility] Heart rate Value=65.0 Units=/min 06/2022 72832-1 [facility] O2 % BldC Oximetry Value=98.0 Units= % 10/13/2022 70063-8 [facility] Weight Kuvrj=134.2 Units=Lbs 9279-1 [facility] Respiratory Rate Value=20.0 Units=/m in 10/04/2022 8302-2 [facility] Height Value=64.0 Units=Inches 10/03/2022
[2024-08-05 14:13] LABS: MANUAL DIFF FLAG NO
[2024-08-05 14:21] LABS: Basophils Absolute Auto 0.1 X10*3/uL (0.0-0.2); Basophils Percent Auto 0.8 % (0-2); Eosinophils Absolute Auto 0.3 X10*3/uL (0.0-0.4); Eosinophils Percent Auto 3.9 % (0-4); Hematocrit 40.6 % (37.0-47.0); Hemoglobin 14.8 g/dl (12.0-16.0); Imm Gran Abs Auto 0.04 X10*3/uL (0.00-0.03); Imm Gran Pct Auto 0.6 % (0.0-0.4); Lymphocytes Absolute Auto 2.3 X10*3/uL (1.2-4.9); Mean Corpuscular HGB Conc 36.5 g/dl (31.0-35.0); Mean Corpuscular Hemoglobin 28.5 pg (27.0-33.0); Mean Corpuscular Volume 78.2 fL (80.0-98.0); Mean Platelet Volume 10.7 fL (9.4-12.3); Monocytes Absolute Auto 0.5 X10*3/uL (0.1-1.2); Monocytes Percent Auto 6.5 % (2-11); Neutrophils Absolute Auto 4.1 x10*3/uL (2.0-8.3); Neutrophils Percent Auto 56.2 % (45-73); Platelet Count 368 X10*3/uL (160-400); Red Blood Count 5.19 X10*6/uL (4.20-5.50); Red Cell Distribution Width 12.7 % (11.0-16.0); White Blood Count 7.2 X10*3/uL (4.8-10.8)
[2024-08-05 14:42] LABS: Creatinine Urine 93.36 mg/dL; Microalbumin Urine < 5.0 mg/L
[2024-08-05 14:46] LABS: Alanine Aminotransferase 30 U/L (0-31); Alkaline Phosphatase 89 U/L (39-117); Anion Gap 10 (12-20); Aspartate Amino Transferase 21 U/L (5-31); Bilirubin Total 0.6 mg/dL (0.0-1.0); Blood Urea Nitrogen 13 mg/dL (9-16); Calcium 9.2 mg/dL (8.4-10.2); Carbon Dioxide 26 mmol/L (22-29); Chloride 99 mmol/L (96-108); Cholesterol 211 mg/dL (<200); Estimated Glomerular Filt Rate > 60; Glucose Random 421 mg/dL (60-115); HDL Cholesterol 51 mg/dL (>40); LDL Cholesterol Calculated 136 mg/dL (<100); Potassium 4.2 mmol/L (3.3-5.1); Sodium 131 mmol/L (135-145); Total Protein 7.1 g/dL (6.5-8.0); Triglycerides 121 mg/dL (<150)
== END 2024-08-05 12:53 | disposition home or self-care (01) ==
LOC: HO.CHCLDS 12:52
PROVIDERS: Visit Provider Internal Medicine
DX: E11.59 Type 2 diabetes mellitus with other circulatory complications (principal); Z79.4 Long term (current) use of insulin
CPT/HCPCS: 36415; 80053; 80061; 82570; 84443; 85025